=== PATIENT | male | born 1980 | race Caucasian/White ===

== ENCOUNTER 2016-12-24 21:55 | Emergency (ER) | payer OTHER ==
[2016-12-24] MEDS ORDERED: KETOROLAC TROMETHAMINE 30 MG/ML 1 ML VIAL ONE (23:02)
[2016-12-24] MEDS ORDERED: MORPHINE SULFATE 2 MG/ML SYRINGE ONE (23:03)
[2016-12-24] MEDS ORDERED: MORPHINE SULFATE 4 MG/ML SYRINGE ONE (23:03)
[2016-12-24] MEDS ORDERED: PROCHLORPERAZINE 5 MG/ML 2 ML VIAL ONE (23:03)
[2016-12-24 23:06] LABS: ABSOLUTE NEUTROPHIL COUNT 8.3 K/mm3 (1.8-7.7); BASO # 0.1 K/mm3 (0.0-0.2); BASO % 0.5 % (0.2-1.0); EOS # 0.3 (0.0-0.5); EOS % 2.4 % (0.9-2.9); HEMATOCRIT 42.7 % (32.0-52.0); HEMOGLOBIN 15.1 gm/l (14.0-18.0); IMM NEUT% 0.3 % (0-1); LYMPH # 2.6 (1.0-4.8); LYMPH % 21.5 % (15-45); MEAN CELL VOLUME 89.7 fl (80.0-94.0); MEAN CORPUSCULAR HEMOGLOBIN 31.7 pg (27.0-31.0); MEAN CORPUSCULAR HGB CONC 35.4 g/dl (33.0-37.0); MEAN PLATELET VOLUME 10.1 fl (7.4-10.4); MONO # 0.9 (0.0-0.8); MONO % 7.5 % (4-12); NEUT % 67.8 % (43-75); PLATELET COUNT 238 K/mm3 (130-400); RED CELL DISTRIBUTION WIDTH 11.5 % (11.5-14.5)
[2016-12-24 23:21] LABS: C-REACTIVE PROTEIN 0.7 mg/dl (<1.0); CALCIUM 9.1 mg/dL (8.6-10.3)
[2016-12-24 23:48] LABS: URINE BILIRUBIN NEGATIVE (NEGATIVE); URINE BLOOD NEGATIVE (NEGATIVE); URINE GLUCOSE (UA) NEGATIVE (NEGATIVE); URINE LEUKOCYTE ESTERASE NEGATIVE (NEGATIVE); URINE NITRITE NEGATIVE (NEGATIVE); URINE PROTEIN NEGATIVE (NEGATIVE); URINE UROBILINOGEN NORMAL (0-1 mg/dl)
[2016-12-24 23:59] LABS: URINE APPEARANCE CLEAR; URINE COLOR YELLOW
[2016-12-25] MEDS ORDERED: MORPHINE SULFATE 4 MG/ML SYRINGE ONE (00:41)
[2016-12-25] MEDS ORDERED: MORPHINE SULFATE 2 MG/ML SYRINGE ONE (00:41)
== END 2016-12-25 01:49 | disposition home or self-care (01) ==
LOC: ED 21:55
DX: R10.9 Unspecified abdominal pain (principal); Z87.442 Personal history of urinary calculi; G89.29 Other chronic pain; M54.9 Dorsalgia, unspecified; G40.409 Other generalized epilepsy and epileptic syndromes, not intractable, without status epilepticus; F17.210 Nicotine dependence, cigarettes, uncomplicated; Z79.899 Other long term (current) drug therapy; Z79.891 Long term (current) use of opiate analgesic; Z88.8 Allergy status to other drugs, medicaments and biological substances
CPT/HCPCS: 83605; 86141; 85025; 80048; 81003; 96375 ×2; 99283 ×2; 96376; 96374; J0780; J2270 ×4; J1885